=== PATIENT | female | born 1955 | race Caucasian/White ===

== ENCOUNTER 2020-03-01 16:57 | Emergency (ER) | payer MEDICARE, MEDICAID ==
[~2020-03-01] VITALS: Ht 157.5 cm; Wt 75.7 kg
[2020-03-01 17:11] VITALS: BP 129/75
[2020-03-01 17:56] LABS: Urine Bacteria FEW /hpf (None Seen); Urine Blood 2+ /uL (Negative); Urine Mucus FEW (None Seen); Urine Specific Gravity 1.023 (1.001-1.035); Urine WBC 1442 /hpf (0 - 5)
[2020-03-01] MEDS ORDERED: PHENAZOPYRIDINE HCL 100 MG TAB PO ONE (18:00)
[2020-03-01] MEDS ORDERED: cefTRIAXone SOD 1,000 MG VL IM ONE (18:00)
== END 2020-03-01 18:20 | disposition home or self-care (01) ==
LOC: ER 16:57
DX: N30.00 Acute cystitis without hematuria (principal); I10 Essential (primary) hypertension; Z87.440 Personal history of urinary (tract) infections
CPT/HCPCS: 81001; 96372; 99283; J0696

== ENCOUNTER → 2020-03-10 | Emergency (ER) | payer MEDICARE, MEDICAID ==
[~2020-03-10] VITALS: Ht 160 cm; Wt 75.7 kg
[~2020-03-10] MED LIST: ACETAMINOPHEN 500 MG TAB PO ONE; IBUPROFEN 800 MG TAB PO ONE; METOPROLOL SUCCINATE XL 50 MG TAB PO ONE
[2020-03-10 21:40] VITALS: BP 162/82
== END | disposition home or self-care (01) ==
LOC: ER 19:28
DX: S83.91XA Sprain of unspecified site of right knee, initial encounter (principal); I10 Essential (primary) hypertension; W01.0XXA Fall on same level from slipping, tripping and stumbling without subsequent striking against object, initial encounter; Y93.89 Activity, other specified; Y92.89 Other specified places as the place of occurrence of the external cause; Y99.8 Other external cause status
CPT/HCPCS: 29505; 73700